=== PATIENT | male | born 1965 | race Caucasian/White ===

== ENCOUNTER 2022-01-12 12:35 | Emergency (ER) | payer OTHER ==
[2022-01-12 12:41] VITALS: BP 132/82
[2022-01-12] MEDS ORDERED: CLINDAMYCIN 150 MG CAPSULE PO STA (12:59)
[2022-01-12] MEDS ORDERED: predniSONE 20 MG TABLET PO STA (12:59)
--- NOTE | 2022-01-12 13:00 | ED Physician Documentation ---
History of Present Illness - Stated complaint Stated Complaint: LT KNEE PX/SWELLING - Chief complaint Chief Complaint: Ext Problem - History obtained from History obtained from: Patient - History of Present Illness Timing: Today Pain level max: 5 Pain level now: 5 - Additonal information Additional information: Patient is a 56-year-old male who presents to the emergency department left knee swelling. He states he fell off of a skateboard several days ago, did not have any swelling at that time but since that time has developed redness and swelling just below the knee on the left leg. Nothing seems to make it better or worse. No drainage. No fevers. No chills. No numbness or tingling. Patient has been ambulating. Review of Systems Constitutional: denies: Fever, Chills Respiratory: denies: Cough GI: denies: Nausea, Vomiting, Diarrhea Skin: denies: Rash Musculoskeletal: denies: Neck pain, Back pain Neurologic: denies: Headache PD PAST MEDICAL HISTORY - Past Medical History Past Medical History: No - Past Surgical History Past Surgical History: No - Present Medications Home Medications: Ambulatory Orders Medication Instructions Recorded Confirmed Meloxicam [Mobic] 7.5 mg PO BID PRN #20 tablet 01/12/22 cephALEXin [Keflex] 500 mg PO Q6H #28 cap 01/12/22 predniSONE [Deltasone] 10 mg PO [id number] #42 tab 01/12/22 - Allergies Allergies/Adverse Reactions: Allergies Allergy/AdvReac Type Severity Reaction Status Date / Time No Known Drug Allergies Allergy Verified 01/12/22 12:39 - Living Situation Living Situation: reports: With family Living Arrangement: reports: At home - Family History Family history: reports: Non contributory PD ED PE NORMAL - Vitals Vital signs reviewed: Yes - General General: Alert and oriented X 3, No acute distress - HEENT HEENT: Moist mucous membranes - Neck Neck: Supple, no meningeal sign - Derm Derm: Warm and dry - Extremities Extremities: Other (Mild swelling to the area near the tibial plateau on the left leg. No joint effusion. No bony tenderness. There is erythema at this area as well. There is induration but no fluctuance. FROM without pain NVI) - Neuro Neuro: Alert and oriented X 3 Results - Vitals Vitals: Vital Signs - 24 hr 01/12/22 12:40 Temperature 37.0 C Heart Rate 95 Respiratory 16 Rate Blood Pressure 132/82 H O2 Saturation 98 Oxygen O2 Source Room air - Rads (name of study) L knee xray Radiology: Final report received, EMP read contemporaneously, See rad report PD MEDICAL DECISION MAKING - ED course Complexity details: reviewed results, considered differential, d/w patient ED course: 56-year-old male with what appears to be likely bursitis, prepatellar/infrapatellar on the left knee. There is a small joint effusion on x-ray. He is not tender on the joint line. He does have a small abrasion to the knee, possible early cellulitis as well? We will cover with antibiotics, anti- inflammatory medication and a short course of steroids. Patient is well- appearing, nontoxic. Afebrile. No evidence of septic joint. No indication for acute drainage of the area. Neurovascular intact. Patient counseled regarding signs and symptoms for which I believe and urgent re-evaluation would be necessary. Patient with good understanding of and agreement to plan and is comfortable going home at this time This document was made in part using voice recognition software. While efforts are made to proofread this document, sound alike and grammatical errors may occur. Departure - Departure Disposition: 01 Home, Self Care Clinical Impression: Bursitis Qualifiers: Bursitis location: knee Knee bursitis location: infrapatellar bursitis Laterality: left Qualified Code(s): M70.52 - Other bursitis of knee, left knee Cellulitis Qualifiers: Site of cellulitis: extremity Site of cellulitis of extremity: lower extremity Laterality: left Qualified Code(s): L03.116 - Cellulitis of left lower limb Joint effusion of knee Qualifiers: Laterality: left Qualified Code(s): M25.462 - Effusion, left knee Condition: Good Instructions: ED Bursitis, ED Effusion Knee Follow-Up: your,doctor in 1 week [Other] Orthopedic Care [Provider Group] Prescriptions: predniSONE [Deltasone] 10 mg PO [id number] #42 tab cephALEXin [Keflex] 500 mg PO Q6H #28 cap Meloxicam [Mobic] 7.5 mg PO BID PRN #20 tablet PRN Reason: Pain Comments: Your prescriptions were sent to [facility]. Please use the medications as prescribed. Please follow-up with your doctor for further care. It is recommend that you be reevaluated in about 1 week by your doctor and/or orthopedics. The swelling should decrease over the next 24 to 48 hours. Return if you worsen.
--- NOTE | 2022-01-12 13:22 | XRAY Report ---
PROCEDURE: Knee 4 View LT INDICATIONS: fall, knee pain TECHNIQUE: 4 views of the left knee(s) were acquired. COMPARISON: None. FINDINGS: Mild pretibial soft tissue swelling. Bones intact. Normal patellar height and position. Sma ll to moderate suprapatellar knee joint effusion. IMPRESSION: No fracture or dislocation. Small to moderate suprapatellar knee joint effusion. Mild prepatellar soft tissue swelling. Reviewed by: Jalil Bobo MD on 01/12/2022 1:21 PM PDT Approved by: Jalil Bobo MD on 01/12/2022 1:21 PM PDT Station ID: [id number]
== END 2022-01-12 13:50 | disposition home or self-care (01) ==
LOC: ED 12:35
DX: M70.52 Other bursitis of knee, left knee (principal); L03.116 Cellulitis of left lower limb
CPT/HCPCS: 73564; 99283; A9270; J7512

== ENCOUNTER 2022-04-20 09:42 | Emergency (ER) | payer OTHER ==
[2022-04-20 10:11] VITALS: BP 157/101
[2022-04-20] MEDS ORDERED: LIDOCAINE 1%-EPI 1:100000 20 ML MDV SUBQ STA (10:46)
--- NOTE | 2022-04-20 10:59 | ED Physician Documentation ---
PD HPI WOUND RECHECK - Stated complaint Stated Complaint: NECK LUMP - Chief complaint Chief Complaint: Wound - Histroy obtained from History obtained from: Patient (He has an infected sebaceous cyst on the back of his neck. He had it incised and drained at [facility] on Tuesday, but it has reaccumulated. He is not on antibiotics and would like to avoid antibiotics given personal history of C. difficile.) Review of Systems Constitutional: denies: Fever, Chills : reports: Reviewed and negative Skin: reports: Reviewed and negative PD PAST MEDICAL HISTORY - Past Surgical History Past Surgical History: No - Present Medications Home Medications: Ambulatory Orders Medication Instructions Recorded Confirmed Meloxicam [Mobic] 7.5 mg PO BID PRN #20 tablet 01/12/22 cephALEXin [Keflex] 500 mg PO Q6H #28 cap 01/12/22 predniSONE [Deltasone] 10 mg PO [id number] #42 tab 01/12/22 - Allergies Allergies/Adverse Reactions: Allergies Allergy/AdvReac Type Severity Reaction Status Date / Time No Known Drug Allergies Allergy Verified 04/20/22 10:04 PD ED PE NORMAL - Vitals Vital signs reviewed: Yes - General General: Alert and oriented X 3, No acute distress - Neck Neck: Other (There is a pointed sebaceous cyst on the back of the neck around C6 with fluctuance. There is a incision in it but it is not draining.) - Neuro Neuro: Alert and oriented X 3, Normal speech Results - Vitals Vitals: Vital Signs - 24 hr 04/20/22 10:05 Temperature 36.5 C Heart Rate 78 Respiratory 16 Rate Blood Pressure 157/101 H O2 Saturation 98 Oxygen O2 Source Room air Procedures - Abscess I&D (location) Neck Preparation: Lidocaine 1% Incision: Incised with scalpel, Loculations broken, Packed (with 1/4 inch packing) Other: Pt tolerated well Departure - Departure Disposition: 01 Home, Self Care Clinical Impression: Sebaceous cyst Condition: Good Record reviewed to determine appropriate education?: Yes Instructions: ED Abscess IandD Follow-Up: Thiago Jones MD [Provider Admit Priv/Credential] - Comments: As discussed, eventually you may need to see a surgeon to have a wide excision of this cyst. 1 is listed on this form. Packing needs to come out in 2 days, you can do it yourself or return to the emergency department or go to walk-in clinic for same. Return if worse.
== END 2022-04-20 11:45 | disposition home or self-care (01) ==
LOC: ED 09:42
DX: L72.3 Sebaceous cyst (principal); Z86.19 Personal history of other infectious and parasitic diseases
CPT/HCPCS: 10060